=== PATIENT | male | born 1995 | race Caucasian/White ===

== ENCOUNTER 2022-08-26 10:26 | Outpatient (RCR) | payer OTHER, SELFPAY | END 2022-10-05 12:26 | disposition home or self-care (01) | LOC: PT 10:26 | PROVIDERS: PCP Nurse Practitioner Family; Visit Provider Nurse Practitioner Family | DX: G80.9 Cerebral palsy, unspecified (principal) | CPT/HCPCS: 97110; 97113 ==

== ENCOUNTER 2023-12-30 09:34 | Outpatient (OUT) | payer OTHER, SELFPAY ==
[2023-12-30 10:54] LABS: Alanine Aminotransferase 24 U/L (16-63); Albumin Globulin Ratio 1.2; Albumin Level 4.2 g/dL (3.4-5.0); Alkaline Phosphatase 92 U/L (46-116); Aspartate Amino Transferase 30 U/L (15-37); BUN Creatinine Ratio 10.8; Bilirubin Total 0.7 mg/dL (0.2-1.0); Calcium 9.3 mg/dL (8.5-10.1); Carbon Dioxide 28.2 mmol/L (21.0-32.0); Chloride 102 mmol/L (98-107); Chol HDL Ratio 5.2; Cholesterol 168 mg/dL (<=200); Estimated GFR (African America >60 (>=60 mL/min/1.73m^2); Estimated GFR (Non-African Ame >60 (>=60 mL/min/1.73m^2); Globulin 3.4 g/dL; Glucose 90 mg/dL (74-106); HDL Cholesterol 32 mg/dL (40-60); Potassium 4.2 mmol/L (3.5-5.1); Sodium 136 mmol/L (136-145); Total Protein 7.6 g/dL (6.4-8.2); Triglycerides 107 mg/dL (<=150); VLDL CHOLESTEROL 21.4 mg/dL
== END 2023-12-30 09:35 | disposition home or self-care (01) ==
LOC: LAB 09:36
PROVIDERS: PCP Nurse Practitioner Family; Visit Provider Pediatrics Pediatric Cardiology
DX: Q24.4 Congenital subaortic stenosis (principal); I34.0 Nonrheumatic mitral (valve) insufficiency
CPT/HCPCS: 36415; 80053; 80061

== ENCOUNTER 2024-12-28 09:42 | Outpatient (OUT) | payer OTHER, SELFPAY ==
--- OUTSIDE RECORDS SUMMARY | 2024-12-28 09:47 | XMS_ITS | CCD ---
Author Organization [facility] Care Team Providers Care Meter Maker Name Role Phone Nitesh Eller DO Primary Care Provider [phone] Shannen Garrett Primary Care Provider SHANNEN GARRETT Primary Care Unavailable SHANNEN GARRETT Attending Unavailable SHANNEN GARRETT Admitting Unavailable SHANNEN GARRETT Primary Care Unavailable SHANNEN GARRETT Attending Unavailable SHANNEN GARRETT Admitting Unavailable DR TIMI THOMAS Primary Care Unavailable BRANDT, DINGDING Admitting Unavailable BRANDT, DINGDING Consulting Unavailable BRANDT, DINGDING Attending Unavailable SHANNEN GARRETT Primary Care Unavailable BRANDT, DINGDING Referring Unavailable BRANDT, DINGDING Attending Unavailable Problems Active Problems Problem Classification Problem Date Documented Date Episodic/Chronic Attention-deficit, conduct, and disruptive behavior disorders (2 sources) Attention deficit hyperactivity disorder; Translations: [Attention-deficit hyperactivity disorder, unspecified type] Onset: 11-15-2011 11-15-2011 Chronic Cardiac and circulatory congenital anomalies (6 sources) 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; Translations: [Congenital subaortic stenosis] Onset: 06-16-2012 06-16-2012 Chronic Disorders of lipid metabolism (4 sources) Dyslipidemia; Translations: [Hyperlipidemia, unspecified] Onset: 11-15-2011 Resolved: 10-23-2013 10-23-2013 Chronic Heart valve disorders (2 sources) Mitral valve regurgitation; Translations: [Nonrheumatic mitral (valve) insufficiency] Onset: 06-16-2012 06-16-2012 Chronic Paralysis (4 sources) Cerebral palsy, unspecified; Translations: [CEREBRAL PALSY UNSPECIFIED] Onset: 08-19-2022 Chronic Past or Other Problems Problem Classification Problem Date Documented Da te Episodic/Chronic Heart valve disorders (2 sources) Heart murmur; Translations: [Cardiac murmur, unspecified] Onset: 11-15-2011 Resolved: 08-19-2015 08-19-2015 Episodic Nonspecific chest pain (2 sources) Chest pain; Translations: [Chest pain, unspecified] Onset: 06-02-2016 06-02-2016 Episodic Results Test Name Value Interpretation Reference Range Facility LIPID PROFILEon 05-17-2022 CHOL-HDL RATIO NORM SEE BELOW Normal [facility] Comment on above: Result Comment: 3.3 - 4.4 LOW RISK 4.4 - 7.1 AVERAGE RISK 7.1 - 11.0 MODERATE RISK >11.0 HIGH RISK Performed By: #### L IPID #### [facility] [address] [address] [address] Pasquale Jose Cholesterol [Mass/Vol] 189 mg/dL Normal <=200 [facility] Comment on above: Performed By: #### L IPID #### [facility] [address] [address] [address] Pasquale Jose Cholesterol in HDL [Mass/Vol] 29 mg/dL Critically low 40-60 [facility] Comment on above: Performed By: #### L IPID #### [facility] [address] [address] [address] Pasquale Jose Cholesterol in LDL [Mass/Vol] 135.8 mg/dL Normal [facility] Comment on above: Performed By: #### L IPID #### [facility] [address] [address] [address] Pasquale Jose Cholesterol.total/Chol esterol in HDL [Mass ratio] 6.5 {ratio} Normal [facility] Comment on above: Performed By: #### L IPID #### [facility] [id number] Pasquale Jose HDL NORMAL > or = 60 mg/dl - LO W CARDIOVASCULAR RISK <40 mg/dl - HIGH CARDIOVASCULAR RISK Normal [facility] Comment on above: Performed By: #### L IPID #### [facility] [id number] Pasquale Jose LDL CALC NORMAL SEE BELOW Normal [facility] Comment on above: Result Comment: <100 mg/dl OPTIMAL 100 - 129 mg/dl NEAR OR ABOVE OPTIMAL 130 - 159 mg/dl BORDERLINE HIGH 160 - 189 mg/dl HIGH >190 mg/dl VERY HIGH Performed By: #### L IPID #### [facility] [address], [place] [address] Dr. Pasquale Jose Triglyceride [Mass/Vol] 121 mg/dL Normal <=150 [facility] Comment on above: Performed By: #### L IPID #### [facility] [address], [place] [address] Dr. Pasquale Jose VLDL CALC 24.2 mg/dL Normal [facility] Comment on above: Performed By: #### L IPID #### [facility] [address], [place] [address] Dr. Pasquale Jose [facility] 12-08-2021 Pediatric/Congenital Transthoracic Echocardiography (TTE) Report Demographics Patient Name JAJA VELASQUEZ Date of Study 12/08/2021 Date of 1995 Gender Male Age 26 year(s) Race Room Number [id number]^JONATHON G Height: 69.69 inch, 177 cm Corporate ID [id number] Weight: 163.14 pounds, 74 # kg Patient Acct [id number] BSA: 1.91 m^2 BMI: 23.62 # kg/m^2 MR # [id number] Calculus Tutor Jesus Piper Interpreting Brandt Ulloa Physician Referring Referring Nurse Physician Practitioner Conclusions Summary 1. Small discrete subaortic membrane with mild subaortic stenosis and trace aortic regurgitation. a) Subaortic peak systolic gradient pressure 23-24mmHg. b) No aortic valve stenosis (Aortic valve annulus measured 25mm; z-score 1.4) 2. Mild mitral valve regurgitation. 3. Normal bi-ventricular dimension and systolic function. Compared to previous study, the significant change is the subaortic stenosis is slightly worse.. Signature - - - - Procedure Type of Study Pediatric/Congenital TTE Procedure:Echo Sector/Doppler. Procedure Date Date: 12/08/2021tart: 04:58 PM Comments: Shannen Garrett ([facility]) Technical Quality: Adequate visualization Probe:5.5 MHZ. Patient Status: Outpatient HR: 66 bpmBP: 136/79 mmHg Findings Pulmonary Veins At least three of four pulmonary veins seen draining into the left atrium. (previous study) Systemic Veins Normal systemic venous return. (previous study) Atrial Septum No obvious evidence of atrial level shunting. Atria Upper normal left atrium. AV Valves Normal atrioventricular valve without stenosis. Trivial mitral and tricuspid valve regurgitation. Ventricular Septum No obvious evidence of ventricular level shunting. Ventricles Normal ventricular dimensions without evidence of hypertrophy. The biventricular systolic function is normal. Aortic Valve Aortic valve is trileaflet aortic valve without stenosis and regurgitation. There is a tiny subaortic fibromuscular ridge leading to tubulent flow starting at the ridge with peak systolic gradient 23-24mmHg. Pulmonic Valve Normal pulmonary valve without stenosis or significant regurgitation. Coronary Arteries Both origins of the coronary arteries are visualized (previous study) Aorta Normal aortic arch with normal branching and no evidence of coarctation. Pulmonary Arteries The main and branch pulmonary arteries are normal sized without peripheral stenosis. Miscellaneous Normal aortic root dimension. Valves Tricuspid Valve Peak velocity:0.69 m/s TR velocity:2.3 m/s TR gradient:21.16 mmHg Pulmonic Valve Peak velocity: 1.3 m/s Peak gradient: 6.76 mmHg Mitral Valve Peak gradient: 2.37 mmHg Peak E-Wave: 0.77 m/s Aortic Valve Annulus:25 mm Peak velocity: 2.4 m/s Peak gradient: 23.04 mmHg Structures Left Atrium LA dimension: 36 mm Left Ventricle Diastolic dimension: 61 mm Systolic dimension: 38 mm Septum diastolic: 7 mm PW diastolic: 7 mm EF calculated: 76.2 % FS: 37.7 % LVEDV:229 ml EF Teicholz:66.9 % LVESV:54.4 ml LVEDV index:120 ml/m^2 LVESV index:28 ml/m^2 Right Ventricle Diastolic dimension: 28 mm Vessels Pulmonary Arteries Right PA peak velocity:0.96 m/s Right PA peak gradient:4 mmHg Main PA diameter: Left PA peak velocity:0.95 m/s Left PA peak gradient:4 mmHg MHPN STV CPACS Laila Carlton MD - 12/08/2021 Pediatric/Congenital Transthoracic Echocardiography (TTE) Report Demographics Patient Name JAJA VELASQUEZ Date of Study 12/08/2021 Date of 1995 Gender Male Age 26 year(s) Race Room Number [id number]^BRANDT^DINGDIN G Height: 69.69 inch, 177 cm Corporate ID [id number] Weight: 163.14 pounds, 74 # kg Patient Acct [id number] BSA: 1.91 m^2 BMI: 23.62 # kg/m^2 MR # [id number] Calculus Tutor Jesus Cuevashel Interpreting Brandt Ulloa Physician Referring Referring Nurse Physician Practitioner Conclusions Summary 1. Small discrete subaortic membrane with mild subaortic stenosis and trace aortic regurgitation. a) Subaortic peak systolic gradient pressure 23-24mmHg. b) No aortic valve stenosis (Aortic valve annulus measured 25mm; z-score 1.4) 2. Mild mitral valve regurgitation. 3. Normal bi-ventricular dimension and systolic function. Compared to previous study, the significant change is the subaortic stenosis is slightly worse.. Signature - - - - Procedure Type of Study Pediatric/Congenital TTE Procedure:Echo Sector/Doppler. Procedure Date Date: 12/08/2021tart: 04:58 PM Comments: Shannen Garrett (PCP) Technical Quality: Adequate visualization Probe:5.5 MHZ. Patient Status: Outpatient HR: 66 bpmBP: 136/79 mmHg Findings Pulmonary Veins At least three of four pulmonary veins seen draining into the left atrium. (previous study) Systemic Veins Normal systemic venous return. (previous study) Atrial Septum No obvious evidence of atrial level shunting. Atria Upper normal left atrium. AV Valves Normal atrioventricular valve without stenosis. Trivial mitral and tricuspid valve regurgitation. Ventricular Septum No obvious evidence of ventricular level shunting. Ventricles Normal ventricular dimensions without evidence of hypertrophy. The biventricular systolic function is normal. Aortic Valve Aortic valve is trileaflet aortic valve without stenosis and regurgitation. There is a tiny subaortic fibromuscular ridge leading to tubulent flow starting at the ridge with peak systolic gradient 23-24mmHg. Pulmonic Valve Normal pulmonary valve without stenosis or significant regurgitation. Coronary Arteries Both origins of the coronary arteries are visualized (previous study) Aorta Normal aortic arch with normal branching and no evidence of coarctation. Pulmonary Arteries The main and branch pulmonary arteries are normal sized without peripheral stenosis. Miscellaneous Normal aortic root dimension. Valves Tricuspid Valve Peak velocity:0.69 m/s TR velocity:2.3 m/s TR gradient:21.16 mmHg Pulmonic Valve Peak velocity: 1.3 m/s Peak gradient: 6.76 mmHg Mitral Valve Peak gradient: 2.37 mmHg Peak E-Wave: 0.77 m/s Aortic Valve Annulus:25 mm Peak velocity: 2.4 m/s Peak gradient: 23.04 mmHg Structures Left Atrium LA dimension: 36 mm Left Ventricle Diastolic dimension: 61 mm Systolic dimension: 38 mm Septum diastolic: 7 mm PW diastolic: 7 mm EF calculated: 76.2 % FS: 37.7 % LVEDV:229 ml EF Teicholz:66.9 % LVESV:54.4 ml LVEDV index:120 ml/m^2 LVESV index:28 ml/m^2 Right Ventricle Diastolic dimension: 28 mm Vessels Pulmonary Arteries Right PA peak velocity:0.96 m/s Right PA peak gradient:4 mmHg Main PA diameter: Left PA peak velocity:0.95 m/s Left PA peak gradient:4 mmHg [employer] Work Phone: [phone] Phone: Echocardiogram Limited 2D w Doppler w Color CongenitalOrdered By: Laila Carlton on 12-05-2020 Pediatric/Congenital Transthoracic Echocardiography (TTE) Report Demographics Patient Name JAJA VELASQUEZ Date of Study 12/05/2020 Date of 1995 Gender Male Age 25 year(s) Race Room Number [id number]^BRANDT^DINGDIN G Height: 70.08 inch, 178 cm Corporate ID [id number] Weight: 174.39 pounds, # 79.1 kg Patient Acct [id number] BSA: 1.97 m^2 BMI: 24.97 # kg/m^2 MR # [id number] Calculus Tutor Patricia Chaves Interpreting Brandt Ulloa Physician Referring Referring Nurse Physician Practitioner Conclusions Summary 1. Small discrete subaortic membrane with mild subaortic stenosis and trace aortic regurgitation. a) subaortic peak systolic gradient pressure 18-20mmHg. b) No aortic valve stenosis (Aortic valve annulus measured 25mm; z-score 1.4) 2. Mild mitral valve regurgitation. 3. Normal bi-ventricular dimension and systolic function. No significant change compared to previous study. Signature - - - - Procedure Type of Study Pediatric/Congenital TTE Procedure:2D Limited/Doppler/Color Flow Map. Procedure Date Date: 12/05/2020tart: 01:49 PM Indications: Aortic stenosis. Comments: Sub aortic stenosis Technical Quality: Adequate visualization Patient Limitations:Lung artifact Probe:5.5 MHZ. Patient Status: Outpatient Rhythm: Sinus arrhythmiaHR: 83 bpmBP: 127/84 mmHg Findings Pulmonary Veins At least three of four pulmonary veins seen draining into the left atrium. (previous study) Systemic Veins Normal systemic venous return. (previous study) Atrial Septum No obvious evidence of atrial level shunting. Atria Upper normal left atrium. AV Valves Normal tricuspid valve without stenosis trivial tricuspid valve regurgitation. Trivial mitral regurgitation Ventricular Septum No evidence of ventricular level shunting. Ventricles Normal ventricular dimensions without evidence of hypertrophy. The biventricular systolic function is normal. Aortic Valve Aortic valve is trileaflet aortic valve without stenosis and regurgitation. There is a tiny subaortic fibromuscular ridge leading to tubulent flow starting at the ridge with peak systolic gradient 18-20mmHg Pulmonic Valve Normal pulmonary valve without stenosis or significant regurgitation. Coronary Arteries Both origins of the coronary arteries are visualized (previous study) Aorta Normal aortic arch with normal branching and no evidence of coarctation. Pulmonary Arteries The main and branch pulmonary arteries are normal sized without peripheral stenosis. Miscellaneous Normal aortic root dimension. Valves Tricuspid Valve TR velocity:2.5 m/s TR gradient:25 mmHg Pulmonic Valve Peak velocity: 1.3 m/s Peak gradient: 6.76 mmHg Mitral Valve Peak velocity:0.81 m/s Aortic Valve Annulus:25.4 mm LVOT Peak velocity: 2.2 m/s Peak gradient: 20 mmHg Structures Left Atrium LA dimension: 36 mm LA/Aorta: 1.16 Left Ventricle Diastolic dimension: 60 mm Systolic dimension: 40 mm Septum diastolic: 8 mm PW diastolic: 8 mm EF calculated: 61.3 % FS: 33.3 % LVEDV:178.2 ml EF Teicholz:61.1 % LVESV:68.9 ml LVEDV index:90 ml/m^2 LVESV index:35 ml/m^2 Vessels Aorta Root diameter:31 mm [employer] Work Phone: [place], [employer] Incoming Cardio Results From [facility] - 12/05/2020 4:07 PM EDT Pediatric/Congenital Transthoracic Echocardiography (TTE) Report Demographics Patient Name JAJA VELASQUEZ Date of Study 12/05/2020 Date of 1995 Gender Male Age 25 year(s) Race Room Number [id number]^BRANDT^DINGDIN G Height: 70.08 inch, 178 cm Corporate ID [id number] Weight: 174.39 pounds, # 79.1 kg Patient Acct [id number] BSA: 1.97 m^2 BMI: 24.97 # kg/m^2 MR # [id number] Calculus Tutor Patricia Chaves Interpreting Brandt Ulloa Physician Referring Referring Nurse Physician Practitioner Conclusions Summary 1. Small discrete subaortic membrane with mild subaortic stenosis and trace aortic regurgitation. a) subaortic peak systolic gradient pressure 18-20mmHg. b) No aortic valve stenosis (Aortic valve annulus measured 25mm; z-score 1.4) 2. Mild mitral valve regurgitation. 3. Normal bi-ventricular dimension and systolic function. No significant change compared to previous study. Signature - - - - Procedure Type of Study Pediatric/Congenital TTE Procedure:2D Limited/Doppler/Color Flow Map. Procedure Date Date: 12/05/2020tart: 01:49 PM Indications: Aortic stenosis. Comments: Sub aortic stenosis Technical Quality: Adequate visualization Patient Limitations:Lung artifact Probe:5.5 MHZ. Patient Status: Outpatient Rhythm: Sinus arrhythmiaHR: 83 bpmBP: 127/84 mmHg Findings Pulmonary Veins At least three of four pulmonary veins seen draining into the left atrium. (previous study) Systemic Veins Normal systemic venous return. (previous study) Atrial Septum No obvious evidence of atrial level shunting. Atria Upper normal left atrium. AV Valves Normal tricuspid valve without stenosis trivial tricuspid valve regurgitation. Trivial mitral regurgitation Ventricular Septum No evidence of ventricular level shunting. Ventricles Normal ventricular dimensions without evidence of hypertrophy. The biventricular systolic function is normal. Aortic Valve Aortic valve is trileaflet aortic valve without stenosis and regurgitation. There is a tiny subaortic fibromuscular ridge leading to tubulent flow starting at the ridge with peak systolic gradient 18-20mmHg Pulmonic Valve Normal pulmonary valve without stenosis or significant regurgitation. Coronary Arteries Both origins of the coronary arteries are visualized (previous study) Aorta Normal aortic arch with normal branching and no evidence of coarctation. Pulmonary Arteries The main and branch pulmonary arteries are normal sized without peripheral stenosis. Miscellaneous Normal aortic root dimension. Valves Tricuspid Valve TR velocity:2.5 m/s TR gradient:25 mmHg Pulmonic Valve Peak velocity: 1.3 m/s Peak gradient: 6.76 mmHg Mitral Valve Peak velocity:0.81 m/s Aortic Valve Annulus:25.4 mm LVOT Peak velocity: 2.2 m/s Peak gradient: 20 mmHg Structures Left Atrium LA dimension: 36 mm LA/Aorta: 1.16 Left Ventricle Diastolic dimension: 60 mm Systolic dimension: 40 mm Septum diastolic: 8 mm PW diastolic: 8 mm EF calculated: 61.3 % FS: 33.3 % LVEDV:178.2 ml EF Teicholz:61.1 % LVESV:68.9 ml LVEDV index:90 ml/m^2 LVESV index:35 ml/m^2 Vessels Aorta Root diameter:31 mm [employer] Network Phone: [employer] Network Phone: Encounters Encounter Date Encounter Type Care Provider Facility Start: 12-26-2023 End: 12-26-2023 ambulatory SHANNEN GARRETT [facility] Start: 08-19-2022 End: 08-25-2022 ambulatory SHANNEN BANNER Facility:[facility] Start: 05-17-2022 End: 05-18-[address] CAPELLAN [facility] Facility:[facility] Start: 12-08-2021 End: 12-08-2021 Subsequent hospital visit by physician [facility] Rm 1 [facility] Peds Echo Comment on above: Arrived Start: 12-05-2020 End: 12-05-2020 Subsequent hospital visit by physician [facility] P[facility] Echo Rm 1 [facility] Peds Echo Comment on above: Arrived Procedures Date Procedure Procedure Detail Performing Clinician Start: 12-08-2021 Complete tthrc echo congenital cardiac anomaly Laila Carlton MD Work Phone: Start: 12-05-2020 F-up/limited tthrc e cho congenital car anomaly Laila Carlton MD Work Phone: Plan of Treatment Date Care Activity Detail Author Start: 12-09-2022 End: 12-09-2022 Patient encounter procedure 12/09/2022 Office Visit Pediatric Cardiology Liala Carlton MD [address] [place] [address] [facility] Congenital Rn Orthopaedic Start: 12-07-2021 End: 12-07-2021 Patient encounter procedure 12/07/2021 Office Visit Pediatric Cardiology Laila Carlton MD [address] [place], [place] [id number] [facility] Congenital Rn Orthopaedic Start: 11-26-2021 Influenza vaccination Flu vaccine (# 1) [facility] Start: 11-26-2020 Influenza vaccination Flu vaccine (# 1) [facility] Work Phone: Start: 2013 DTaP/Tdap/Td vaccine (2 - Tdap) DTaP/Tdap/Td vaccine (2 - Tdap) [facility] Start: 2012 Hepatitis C screening Hepatitis C sc reen [facility] Start: 2009 HIV screening HIV screen [facility] Start: 2006 COVID-19 Vaccine (1) COVID-19 Vaccin e (1) [facility] Work Phone: Start: 2006 Depression Screen Depression Screen [employer] Start: 2005 HPV vaccine (1 - Mal e 2-dose series) HPV vaccine (1 - Male 2-dose series) [employer] Phone: Start: 07-19-1995 Varicella vaccine (1 of 2 - 2-dose childhood series) Varicella vaccine (1 of 2 - 2-dose childhood series) [facility] Start: 01-17-1995 COVID-19 Vaccine (#1) COVID-19 Vacci ne (#1) [facility] Start: 1994 Hepatitis C screening Hepatitis C sc reen [employer] Network Phone: Payers Date Payer Category Payer Unknown [id number] 1995 Unknown [id number] 1995 Unknown [id number] [id number] [id number] 1995 Unknown [id number] 1959 Unknown [id number] Social History Date Type Detail Facility Start: 12-05-2020 End: 12-08-2021 Tobacco smoking status [facility] Never smoker [employer] Start: 12-05-2020 End: 12-08-2021 Tobacco use and exposure Never used [employer] Start: 12-05-2020 End: 12-08-2021 Alcohol intake Not Asked [employer] Phone: Start: 1995 [facility] Phone: Start: 11-28-2021 End: 12-08-2021 Exposure to SARS-CoV-2 (event) Not sure [facility] Advance Directives No Advanced Directives Records FoundDocuments on File Type Date 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 ACP-Advance Directive ACP-Power of Supervisor [place] Summary Purpose Family History No Family History Records FoundNo Family History Records Found Additional Source Comments Care Teams (unrecognized sec tion and content) Meter Maker Relationship Specialty Start Date End Date Shannen Garrett [address] [place] [address] [place] [address] PCP - General 12/08/21 (unrecognized sect ion and content) No Status Records FoundNo Status Records Found INFORMATION SOURCE (unrecogn ized section and content) DATE CREATED AUTHOR 09/03/2022 [facility] DATE CREATED AUTHOR AUTHOR'S ORGANIZ ATION 12/27/2023 [facility] FOR RECORDS PERTAINING TO PATIENTS WHO ARE OR HAVE BEEN ENROLLED IN A CHEMICAL DEPENDENCY/SUBSTANCEABUSE PROGRAM, SOME INFORMATION MAY BE OMITTED. This clinical summary was aggregated from multiple sources. Caution should be exercised in using it in the provision of clinical care. This summary normalizes information from multiple sources, and as a consequence, information in this document may materially change the coding, format and clinical context of patient data. In addition, data may be omitted in some cases. CLINICAL DECISIONS SHOULD BE BASED ON THE PRIMARY CLINICAL RECORDS. [employer] [facility]. provides no warranty or guarantee of the accuracy or completeness of information in this document.
[2024-12-28 10:39] LABS: Alanine Aminotransferase 73 U/L (16-63); Albumin Globulin Ratio 1.1; Albumin Level 4.0 g/dL (3.4-5.0); Alkaline Phosphatase 95 U/L (46-116); Anion Gap 13.3; Aspartate Amino Transferase 34 U/L (15-37); Blood Urea Nitrogen 10.0 mg/dL (7.0-18.0); Calcium 9.0 mg/dL (8.5-10.1); Carbon Dioxide 28.3 mmol/L (21.0-32.0); Chloride 104 mmol/L (98-107); Cholesterol 182 mg/dL (<=200); Estimated GFR (African America >60 (>=60 mL/min/1.73m^2); Estimated GFR (Non-African Ame >60 (>=60 mL/min/1.73m^2); Globulin 3.7 g/dL; Glucose 96 mg/dL (74-106); HDL Cholesterol 28 mg/dL (40-60); Potassium 3.6 mmol/L (3.5-5.1); Sodium 142 mmol/L (136-145); Total Protein 7.7 g/dL (6.4-8.2); Triglycerides 208 mg/dL (<=150); VLDL CHOLESTEROL 41.6 mg/dL
== END 2024-12-28 09:43 | disposition home or self-care (01) ==
PROVIDERS: PCP Nurse Practitioner Family; Visit Provider Pediatrics Pediatric Cardiology
DX: Q24.4 Congenital subaortic stenosis (principal); E78.5 Hyperlipidemia, unspecified
CPT/HCPCS: 36415; 80053; 80061